=== PATIENT | female | born 1945 | race Caucasian/White ===

== ENCOUNTER 2019-12-28 15:09 | Outpatient (CLI) | payer MEDICARE, OTHER, SELFPAY ==
--- NOTE | ~2019-12-28 | MM_ITS ---
EXAMINATION: MM screening michael LT w shane HISTORY: Screening TECHNIQUE: Craniocaudal and mediolateral oblique 3-D tomosynthesis images were obtained and synthetic 2-D images were generated. CAD analysis was submitted and interpreted. COMPARISON: Multiple 01/30/2014 BREAST PARENCHYMAL COMPOSITION: There are scattered areas of fibroglandular density. FINDINGS: The right breast is surgically absent. There is no evidence of suspicious mass, calcificati on, or architectural distortion to suggest malignancy in the left breast. There has been no suspiciou s interval change. IMPRESSION: 1. No mammographic evidence of malignancy. 2. Recommend routine screening mammography in one year. BI-RADS Category 1: Negative Reviewed, dictated and finalized at location A.
== END 2019-12-28 15:10 | disposition home or self-care (01) ==
LOC: ANHIMG 15:15
PROVIDERS: PCP Obstetrics & Gynecology; Visit Provider Obstetrics & Gynecology
DX: Z12.31 Encounter for screening mammogram for malignant neoplasm of breast (principal)
CPT/HCPCS: 77063; 77067

== ENCOUNTER 2020-12-27 14:42 | Outpatient (CLI) | payer MEDICARE, SELFPAY ==
--- NOTE | ~2020-12-27 | MM_ITS ---
EXAMINATION: MM screening michael LT w shane HISTORY: Screening. Status post right mastectomy for breast cancer in 2017. TECHNIQUE: Craniocaudal and mediolateral oblique 3-D tomosynthesis images were obtained and synthetic 2-D images were generated. CAD analysis was submitted and interpreted. COMPARISON: Comparison to multiple prior studies sequentially, with oldest reviewed study dated 12/2013. BREAST PARENCHYMAL COMPOSITION: There are scattered areas of fibroglandular density. FINDINGS: There is no evidence of suspicious mass, calcification, or architectural distortion to sugg est malignancy in the left breast. There has been no suspicious interval change. IMPRESSION: 1. No mammographic evidence of malignancy. 2. Recommend routine screening mammography in one year. BI-RADS Category 1: Negative Reviewed, dictated and finalized at location A.
== END 2020-12-27 14:43 | disposition home or self-care (01) ==
PROVIDERS: PCP Obstetrics & Gynecology; Visit Provider Obstetrics & Gynecology
DX: Z12.31 Encounter for screening mammogram for malignant neoplasm of breast (principal)
CPT/HCPCS: 77063; 77067

== ENCOUNTER 2023-06-16 13:58 | Outpatient (NON) | payer MEDICARE, SELFPAY ==
[2023-06-16 14:28] LABS: SARS-CoV-2 RNA PCR Negative (Negative)
[2023-06-16 14:34] LABS: Influenza A QL RT-PCR Negative (Negative); Influenza B QL RT-PCR Negative (Negative)
[2023-06-16 14:41] LABS: Strep Group A RT-PCR Detected (Negative)
== END 2023-06-16 13:59 | disposition home or self-care (01) ==
PROVIDERS: Visit Provider Family Medicine
DX: J06.9 Acute upper respiratory infection, unspecified (principal); Z20.822 Contact with and (suspected) exposure to COVID-19
CPT/HCPCS: 87636; 87651

== ENCOUNTER 2024-05-23 14:38 | Outpatient (CLI) | payer MEDICARE, SELFPAY ==
[2024-05-23 15:02] LABS: Hematocrit 45.4 % (35.0-42.0); Mean Corpuscular Hemoglobin 30.5 pg (27.0-31.0); Mean Corpuscular Volume 92.3 fL (78.0-102.0); Mean Platelet Volume 8.8 fl (9.2-11.8); Platelet Count Result 203 K/mm3 (150-420); Red Blood Count 4.92 M/mm3 (4.20-5.40); Red Cell Distribution Width 12.7 % (11.6-14.4); White Blood Count 6.6 K/mm3 (4.8-10.8)
[2024-05-23 15:28] LABS: Anion Gap 10 mmol/L (4-12); Blood Urea Nitrogen 15 mg/dL (7-18); Calcium 9.3 mg/dL (8.5-10.1); Carbon Dioxide 32 mmol/L (21-32); Chloride 100 mmol/L (98-108); Estimated Glomerular Filt Rate 59; Glucose 121 mg/dL (70-99); Osmolality Calculated 295 mOsm/kg (285-295); Potassium 3.3 mmol/L (3.5-5.1); Sodium 142 mmol/L (136-145)
== END 2024-05-23 14:39 | disposition home or self-care (01) ==
PROVIDERS: PCP Family Medicine; Visit Provider Family Medicine
DX: I69.351 Hemiplegia and hemiparesis following cerebral infarction affecting right dominant side (principal)
CPT/HCPCS: 36415; 80048; 85027

== ENCOUNTER 2024-07-14 16:53 | Outpatient (CLI) | payer MEDICARE, SELFPAY ==
--- OUTSIDE RECORDS SUMMARY | 2024-07-14 16:56 | XMS_ITS | Clinical Summary ---
Author Organization [facility] Address [address] [place] [address] Care Team Providers Care Underground Mine Machinery Mechanic Name Role Phone Dariel Benavides MD Primary Care Provider [phone] Lo Jefferson MD Unavailable Oscar London MD Unavailable Allergies No known active allergies Medications metoprolol succinate 25 MG 24 hr tablet Take 1 tablet (25 mg total) by mouth daily. 7 Active omeprazole 40 MG capsule Take 40 mg by mouth daily. 7 Active trazodone 50 MG tablet Take 1 tablet (50 mg total) by mouth nightly at bedtime. Active vitamin D3, cholecalciferol , 1000 UNIT Tab tablet Take 1,000 Units by mouth daily. Active DME COMPRESSION STOCKINGS 20-30 MMHg Compression Stocking Thigh High open or closed toe Dx I83.893 2 Container 6 9 Active rosuvastatin 5 MG tablet Take 1 tablet (5 mg total) by mouth nightly at bedtime. Active clopidogrel 75 MG tablet Take 1 tablet (75 mg total) by mouth daily. Active betamethasone valerate ointment 0.1 % ointment Apply topically 2 (two) times daily. apply to affected area 0 Active fluticasone propionate 50 MCG/ACT nasal spray 2 sprays by Each Nostril route daily. 2 Active ibuprofen 800 MG tablet Take 800 mg by mouth every 8 (eight) hours as needed. 2 Active venlafaxine XR 150 MG 24 hr capsule Take 1 capsule (150 mg total) by mouth daily. 2 Active ondansetron (ZOFRAN) 4 MG tablet Take 1 tablet (4 mg total) by mouth every 8 (eight) hours as needed for Nausea. 20 tablet 2 Active ARIPiprazole (ABILIFY) 2 MG tablet Take 1 tablet (2 mg total) by mouth daily. Active pantoprazole EC (PROTONIX) 40 MG tablet Take 1 tablet (40 mg total) by mouth daily. Active acetaminophen (TYLENOL) 500 MG tablet Take 1 tablet (500 mg total) by mouth every 6 (six) hours as needed for Pain. 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 History of right breast cancer 08/12/2018 Shoulder impingement, right 07/08/2018 Right shoulder pain 07/05/2018 Age related osteoporosis 04/10/2017 Night sweat 11/14/2016 Cancer of right breast, stage 1 ([facility] ) 11/13/2016 Cancer Staging:Pathologic stage from 07/14/2016:Stage IA(pT1b(m), pN0, cM0, GX, ER+, MA+, HER2-, Oncotype DX score: 2) - Signed by Lo Jefferson MD on 04/22/2018 Diverticulosis of colon 05/14/2013 Constipation 01/11/2013 Melanocytic nevus 01/11/2013 Symptomatic varicose veins of both lower extremi ties Resolved Problems Problem Noted Date Diagnosed Date Resolved Date Altered mental status 08/20/20182018 Immunizations Name Administration Dates Next Due Influenza Adult (Generic) 03/17/2018,05/05/2017 Pneumococcal (Prevnar 13) 09/21/2017 Family History Medical History Relation Comments Lung Cancer Father Lung Cancer Mother Heart Attack Sister Relation Status Comments Father Maternal Grandfather Maternal Grandmother Mother Paternal Grandfather Paternal Grandmother Sister Social History Tobacco Use Types Packs/Day Years Used Date Smoking Tobacco: Former Smokeless Tobacco: Never Tobacco Cessation:Counseling Given: Not Answered Alcohol Use Standard Drinks/Week Comments No 0 (1 standard drink = 0.6 oz pur e alcohol) Humiliation, Afraid, Rape, and Kick questionnair e Answer Date Recorded Fear of Current or Ex-Partner No Emotionally Abused No 06/20/2019 Physically Abused No 06/20/2019 Sexually Abused No 06/20/2019 Social Connection and Isolation Panel [NHANES] A nswer Date Recorded Frequency of Communication with Friends and Fami ly Patient declined 06/20/2019 Frequency of Social Gatherings with Friends and Family Patient declined 06/20/2019 Attends [facility] Patient declined 05/26 Active Member of Clubs or Organizations Patient declined 06/20/2019 Attends Club or Organization Meetings Patient de clined 06/20/2019 Marital Status Patient declined 06/20/2019 AUDIT-C Answer Date Recorded Frequency of Alcohol Consumption Never 04/23/2018 Average Number of Drinks Not on file 018 Frequency of Binge Drinking Not on file 03/27 Overall Financial Resource Strain (CARDIA) Answe r Date Recorded Difficulty of Paying Living Expenses Not very li rd 06/20/2019 PHQ-2 Answer Date Recorded PHQ-2 Score - If the patient scores above 3, please move on to questions 3-9 0 11/09/2019 [facility] Occup[facility] - Occupational Stress Questionnaire Answer Date Recorded Feeling of Stress Patient declined 06/20/2019 Exercise Vital Sign Answer Date Recorde d Days of Exercise per Week Patient declined 06/20 Minutes of Exercise per Session Patient declined 06/20/2019 Hunger Vital Sign Answer Date Recorded Worried About Running Out of Food in the Last Ye ar Patient declined 06/20/2019 Ran Out of Food in the Last Year Patient decline d 06/20/2019 PRAPARE - Transportation Answer Date Re corded Lack of Transportation (Medical) Patient decline d 06/20/2019 Lack of Transportation (Non-Medical) Patient dec lined 06/20/2019 Comments No Sex and Gender Information Value Date Recorded Sex Assigned at Not on file Legal Sex Female 11:00 PM STAIR BUILDER Gender Identity Not on file Sexual Orientation Not on file Occupation Industry Job Start Date Job End Date retired Not on file Not on file Not on file Last Filed Vital Signs Vital Sign Reading Time Taken Comments Blood Pressure 166/75 08/09/2023 2:00 PM CDT Pulse 72 08/09/2023 1:59 PM CDT Temperature 35.8 C (96.4 F) 08/09/2023 12:35 PM CDT Respiratory Rate 16 08/09/2023 1:59 PM CDT Oxygen Saturation 98% 08/09/2023 2:00 PM CDT Inhaled Oxygen Concentration - - Weight 77 kg (169 lb 12.1 oz) 08/09/2023 12:35 P M CDT Height 165.1 cm (5' 5 ) 08/09/2023 12:35 PM CDT Body Mass Index 28.25 08/09/2023 12:35 PM CDT Plan of Treatment Health Maintenance Due Date Last Done Comments Hepatitis C 08[birth year]08/1963 DTaP, Tdap and Td Vaccines ( 1 - Tdap) 1964 Zoster Vaccines (1 of 2) 08/08/1995 Annual Medicare Wellness Visit 2010 Dexa Scan (General) 2010 Pneumococcal Vaccine: 65+ Years (2 of 2 - PPSV23 or PCV20) 09/21/2018 09/21/2017 RSV Immunization or 60+ Years (1 - 1-dose 75+ series) 2020 COVID-19 Vaccine ( - 2023-2 5 season) 2024 Influenza Adult (#1) 2024 03/17/2018, 05/05/2017 Colorectal Cancer Screening Colonoscopy (10 Years) Discontinued Meningococcal B Vaccine Aged Out No l onger eligible based on patient's age to complete this topic Meningococcal Vaccine Aged Out No desiree pratibha eligible based on patient's age to complete this topic RSV Immunizations Under 20 Months Aged Out No longer eligible based on patient's age to complete this topic Procedures Procedure Name Priority Date/Time Associated Diagnosis Comments COLONOSCOPY Routine STAIR BUILDER from Last 3 Months or Most Recently Relevant to Health Maintenance Results * Colonoscopy ( STAIR BUILDER) Narrative [facility] TO EPIC CONVERSION - STAIR BUILDER Documented hx of procedure Procedure Note , Generic Conversion, - 11/04/2018 Documented hx of procedure us Generic Conversion Md MD FREIRE PROCEDURE ORDERABLES Final Result [employer] TO EPIC CONVERSION from Last 3 Months or Most Recently Relevant to Health Maintenance Insurance MEDICARE [facility] [employer] Address: [address] [place] [id number] MEDICARE [facility] Advance Directives Documents on File Type Date Recorded Patient Integration Project Manager Expl anation Advance Directives and Livin g Will 12/09/2021 3:37 PM 06/21/2006 Advance Directives and Livin g Will 09/02/2018 9:53 AM POA Advance Directives and Livin g Will 08/24/2018 8:01 AM Living Will * Full Code (Latest Code Status on File) Date Activated Date Inactivated Comments 11/27/2021 9:03 AM 11/27/2021 1:39 PM * Full Code Date Activated Date Inactivated Comments 06/20/2019 2:39 PM 06/21/2019 5:58 PM * Full Code Date Activated Date Inactivated Comments 08/20/2018 8:12 PM 08/21/2018 2:26 PM Care Teams Underground Mine Machinery Mechanic Relationship Specialty Start Date End Date Dariel Benavides MD [address] [place] [address] PCP - General FAMILY PRACTICE 08/25/18 Lo Jefferson MD [address] [place] [address] Consulting Physician INTERNAL MEDICINE HEMATOLOGY & ONCOLOGY 10/27/18 Oscar London MD [address] [place] [address] Consulting Physician INTERNAL MEDICINE 10/27/18
--- OUTSIDE RECORDS SUMMARY | 2024-07-14 16:56 | XMS_ITS | Encounter Summary ---
Author Organization [facility] Address [address] [place] [address] Care Team Providers Care Floor Covering Layer Name Role Phone Dariel Benavides MD Primary Care Provider [phone] Lo Jefferson MD Unavailable Oscar London MD Unavailable Encounter Details Date Type Department Care Team (Late st Contact Info) Description 10/30/2018 Abstract [facility] CONVERSION [address] [place] [address] , Generic Conversion, Social History Tobacco Use Types Packs/Day Years Used Date Smoking Tobacco: Former Smokeless Tobacco: Never Alcohol Use Standard Drinks/Week Comments No 0 (1 standard drink = 0.6 oz pur e alcohol) AUDIT-C Answer Date Recorded Frequency of Alcohol Consumption Never 04/23/2018 Average Number of Drinks Not on file 018 Frequency of Binge Drinking Not on file 03/27 Comments Unknown Sex and Gender Information Value Date Recorded Sex Assigned at Not on file Legal Sex Female 11:00 PM PATIENT FINANCIAL ADVOCATE Gender Identity Not on file Sexual Orientation Not on file Occupation Industry Job Start Date Job End Date retired Not on file Not on file Not on file documented as of this encounter Functional Status * RETIRED Are you deaf or do you have serious difficulty hearing Answer Date of Assessment Author Status No 08/20/2018 7:57 PM CDT Activ e documented as of this encounter Plan of Treatment Not on file documented as of this encounter Visit Diagnoses Not on filedocumented in this encounter Additional Health Concerns Infection Onset Date Last Indicated Resolved Time COVID-19 Rule Out 05/11/2022 05/11/2022 05/11/2022 1:23 PM PATIENT FINANCIAL ADVOCATE documented as of this encounter Care Teams Floor Covering Layer Relationship Specialty Start Date End Date Dariel Benavides MD [address] [place] [address] PCP - General FAMILY PRACTICE 08/25/18 Lo Jefferson MD [address] [place] [address] Consulting Physician INTERNAL MEDICINE HEMATOLOGY & ONCOLOGY 10/27/18 Oscar London MD [address] [place] [address] Consulting Physician INTERNAL MEDICINE 10/27/18 documented as of this encounter
--- OUTSIDE RECORDS SUMMARY | 2024-07-14 16:56 | XMS_ITS | Encounter Summary ---
Author Organization [facility] Address [address] [place] [address] Care Team Providers Care Auto Air Conditioning Mechanic Name Role Phone Dariel Benavides MD Primary Care Provider [phone] Lo Jefferson MD Unavailable Oscar London MD Unavailable Encounter Details Date Type Department Care Team (Late st Contact Info) Description 10/28/2018 Abstract [facility] [address] [place] [address] Oscar London MD [address] [place] [address] Social History Tobacco Use Types Packs/Day Years [...] on file Legal Sex Female 11:00 PM FACILITIES PAINTER Gender Identity Not on file Sexual Orientation [...] Rule Out 05/11/2022 05/11/2022 05/11/2022 1:23 PM FACILITIES PAINTER documented as of this encounter Care Teams Auto Air Conditioning Mechanic Relationship Specialty Start Date End Date Dariel Benavides MD [address] [place] [address] PCP - General FAMILY PRACTICE 08/25/18 Lo Jefferson MD [address] [place] [address] Consulting Physician INTERNAL MEDICINE HEMATOLOGY & ONCOLOGY 10/27/18 Oscar London MD [address] [place] [address] Consulting Physician INTERNAL MEDICINE 10/27/18 documented as of this encounter
--- OUTSIDE RECORDS SUMMARY | 2024-07-14 16:56 | XMS_ITS | Clinical Summary ---
Author Organization [facility] Address [address] [place] [address] Phone Care Team Providers Care Broadcast Program Director Name Role Phone Dariel Benavides MD Primary Care Provider [phone] Varun Medina MD Unavailable [phone] Allergies No known active allergies Medications acetaminophen (TYLENOL) 500 MG Tablet Take 500 mg by mouth every 6 hours as needed for Mild or more severe pain. Active ARIPiprazole (Abilify) 2 MG Tablet Take 2 mg by mouth daily. Active clopidogrel (PLAVIX) 75 MG Tablet Take 75 mg by mouth daily. Active metoprolol Succinate (TOPROL-XL) 25 MG TABLET SR 24 HR Take 25 mg by mouth daily. Active pantoprazole (Protonix) 40 MG Tablet Delayed Response Take 40 mg by mouth daily. Active traZODone (DESYREL) 50 MG Tablet Take 50 mg by mouth nightly. Active venlafaxine (EFFEXOR-XR) 150 MG CAPSULE SR 24 HR Take 150 mg by mouth daily. Active aspirin 81 MG Chewable Tablet Take 1 Tablet by mouth daily. 04/29/2023 Active rosuvastatin (CRESTOR) 20 MG Tablet Take 1 Tablet by mouth daily. 90 Tablet 04/29/2023 Active Active Problems Problem Noted Date Diagnosed Date GERD (gastroesophageal reflux disease) HLD (hyperlipidemia) 04/25/2023 HTN (hypertension) 04/25/2023 Depression 04/25/2023 Acute focal neurological deficit 04/25/2023 Family History Medical History Relation Name Comments Lung Cancer Father Lung Cancer Mother Heart Attack Sister Relation Name Status Comments Father Mother Sister Social History Tobacco Use Types Packs/Day Years Used Date Smoking Tobacco: Former Cigarettes Smokeless Tobacco: Never Tobacco Cessation:Counseling Given: Not Answered Alcohol Use Standard Drinks/Week Comments Never 0 (1 standard drink = 0.6 oz pur e alcohol) Comments No Sex and Gender Information Value Date Recorded Sex Assigned at Not on file Legal Sex Female 2:08 PM BOLT LABELER Gender Identity Not on file Sexual Orientation Not on file Last Filed Vital Signs Vital Sign Reading Time Taken Comments Blood Pressure 112/68 06/11/2023 9:49 AM BOLT LABELER Pulse 100 06/11/2023 9:49 AM BOLT LABELER Temperature 36.1 C (97 F) 06/11/2023 9:49 AM BOLT LABELER Respiratory Rate 18 06/11/2023 9:49 AM BOLT LABELER Oxygen Saturation 96% 06/11/2023 9:49 AM BOLT LABELER Inhaled Oxygen Concentration - - Weight 81.6 kg (180 lb) 06/11/2023 9:49 AM BOLT LABELER Height 165.1 cm (5' 5 ) 06/11/2023 9:49 AM BOLT LABELER Body Mass Index 29.95 06/11/2023 9:49 AM BOLT LABELER Plan of Treatment Health Maintenance Due Date Last Done Comments DEXA Bone Density 1945 Hepatitis C Virus (HCV) Screening 1945 TdaP Immunization 1945 Zoster Immunization (1 of 2) 08/08/1995 Respiratory Syncytial Virus (RSV) Immunization (Adult) (1 - 1-dose 75+ series) 2020 Influenza Immunization (#1) 01/24/202409/2022, 02/26/2022, 03/09/2020, Additional history exists SARS-COV-2 Immunization ( season) 2024 04/29/2021, 08/03/2020, 07/13/2020 Pneumococcal Immunization (50+ years) Completed 03/09/2019, 09/21/2017 Hepatitis B Immunization Aged Out No longer eligible based on patient's age to complete this topic Meningococcal Immunization (ACWY) Aged Out No longer eligible based on patient's age to complete this topic Rotavirus Immunization Aged Out No lo nger eligible based on patient's age to complete this topic Insurance MEDICARE [facility] Advance Directives Documents on File Type Date Recorded Patient Junior Staff Accountant Expl anation Power of Proofer for Health Care 04/28/2023 5:57 AM POA-HC, 06/21/2006 Living Will 04/28/2023 5:57 AM LIVING MARTHA L, 06/21/2006 * Full Code (Latest Code Status on File) Date Activated Date Inactivated Comments 04/25/2023 8:59 PM 04/28/2023 6:23 PM CPR-Full Eloy atment: FULL ARREST: Attempt Resuscitation/CPR wit intubation and mechanical ventilation. PRE-ARREST: Use entire range of life support measures to stabilize the patient. Care Teams Broadcast Program Director Relationship Specialty Start Date End Date Dariel Benavides MD [address] [place] [address] PCP - General Family Medicine 04/25/23 Varun Medina MD [address] [place] [address] Consulting Physician Neurology 06/11/23
[2024-07-14 17:04] LABS: Appearance Urine Clear (Clear); Bilirubin Urine 1+ (Negative); Blood Urine Negative (Negative); Glucose Urine UA Negative (Negative); Ketones Urine 1+ (Negative); Leukocyte Esterase Ur 1+ LEU/UL (Negative); Nitrate Urine Positive (Negative); Protein Urine 1+ (Negative); Specific Grav Ur >= 1.030 (1.010-1.020); pH Urine 5.5 (5.0-8.0)
[2024-07-14 17:15] LABS: Add Urine Microscopic? YES; Bacteria Urine 4+ /hpf; Color Urine Dark Orange (Yellow); RBC Urine 0-2 /hpf (0-2); Squamous Epithelial Cell Urine Few /hpf (Few); WBC Urine 31-50 /hpf (0-3)
== END 2024-07-14 16:54 | disposition home or self-care (01) ==
LOC: CHSLAB 16:55
PROVIDERS: PCP Family Medicine; Visit Provider Family Medicine
DX: N39.0 Urinary tract infection, site not specified (principal)
CPT/HCPCS: 81001; 87086; 87186

== ENCOUNTER 2024-07-20 10:59 | Outpatient (CLI) | payer MEDICARE, SELFPAY ==
[2024-07-20 11:25] LABS: Hematocrit 48.2 % (35.0-42.0); Hemoglobin 15.7 g/dL (11.7-13.8); Mean Corpuscular HGB Conc 32.6 g/dL (32-36); Mean Corpuscular Hemoglobin 29.7 pg (27.0-31.0); Mean Corpuscular Volume 91.3 fL (78.0-102.0); Mean Platelet Volume 9.2 fl (9.2-11.8); Platelet Count Result 278 K/mm3 (150-420); Red Blood Count 5.28 M/mm3 (4.20-5.40); Red Cell Distribution Width 13.3 % (11.6-14.4); White Blood Count 9.1 K/mm3 (4.8-10.8)
[2024-07-20 11:46] LABS: Alanine Aminotransferase 18 U/L (14-59); Albumin Level 3.7 g/dL (3.4-5.0); Alkaline Phosphatase 94 U/L (46-116); Amylase 44 U/L (25-115); Anion Gap 14 mmol/L (4-12); Aspartate Amino Transferase 25 U/L (15-37); Bilirubin,Total 1.2 mg/dL (0.00-1.00); Blood Urea Nitrogen 15 mg/dL (7-18); Calcium 9.8 mg/dL (8.5-10.1); Carbon Dioxide 30 mmol/L (21-32); Chloride 97 mmol/L (98-108); Estimated Glomerular Filt Rate > 60; Glucose 95 mg/dL (70-99); Lipase 25 U/L (16-77); Osmolality Calculated 292 mOsm/kg (285-295); Potassium 3.4 mmol/L (3.5-5.1); Sodium 141 mmol/L (136-145)
--- OUTSIDE RECORDS SUMMARY | 2024-07-20 12:47 | XMS_ITS | Clinical Summary ---
Author Organization [facility] Address [address] [place] [address] Phone Care Team Providers Care Rating Officer Name Role Phone Dariel Benavides MD Primary Care Provider [phone] Varun Medina MD Unavailable [phone] Allergies No known active allergies Medications acetaminophen [...] on file Legal Sex Female 2:08 PM FANCY PACKER Gender Identity Not on file Sexual Orientation Not on file Last Filed Vital Signs Vital Sign Reading Time Taken Comments Blood Pressure 112/68 06/11/2023 9:49 AM FANCY PACKER Pulse 100 06/11/2023 9:49 AM FANCY PACKER Temperature 36.1 C (97 F) 06/11/2023 9:49 AM FANCY PACKER Respiratory Rate 18 06/11/2023 9:49 AM FANCY PACKER Oxygen Saturation 96% 06/11/2023 9:49 AM FANCY PACKER Inhaled Oxygen Concentration - - Weight 81.6 kg (180 lb) 06/11/2023 9:49 AM FANCY PACKER Height 165.1 cm (5' 5 ) 06/11/2023 9:49 AM FANCY PACKER Body Mass Index 29.95 06/11/2023 9:49 AM FANCY PACKER Plan of Treatment Health Maintenance Due Date [...] age to complete this topic Insurance MEDICARE [facility] Advance Directives Documents on File Type Date Recorded Patient Custom Applicator Expl anation Power of Fundraising Specialist for Health Care 04/28/2023 5:57 AM POA-HC, 06/21/2006 Living Will 04/28/2023 5:57 AM LIVING MARTHA L, 06/21/2006 * Full Code (Latest Code Status on File) Date Activated Date Inactivated Comments 04/25/2023 8:59 PM 04/28/2023 6:23 PM CPR-Full Eloy atment: FULL ARREST: Attempt Resuscitation/CPR wit intubation and mechanical ventilation. PRE-ARREST: Use entire range of life support measures to stabilize the patient. Care Teams Rating Officer Relationship Specialty Start Date End Date Dariel Benavides MD [address] [place] [address] PCP - General Family Medicine 04/25/23 Varun Medina MD [address] [place] [address] Consulting Physician Neurology 06/11/23
--- OUTSIDE RECORDS SUMMARY | 2024-07-20 12:47 | XMS_ITS | Encounter Summary ---
Author Organization [facility] Address [address] [place] [address] Care Team Providers Care Puppet Engineer Name Role Phone Dariel Benavides MD Primary Care Provider [phone] Lo Jefferson MD Unavailable Oscar London MD Unavailable Encounter Details Date Type Department Care Team (Late st Contact Info) Description 10/28/2018 Abstract [facility] [address] [place] [address] Oscar London MD [address] [place] [address] Social History Tobacco Use Types [...] on file Legal Sex Female 11:00 PM RESPIRATORY TECH Gender Identity Not on file Sexual Orientation [...] Rule Out 05/11/2022 05/11/2022 05/11/2022 1:23 PM RESPIRATORY TECH documented as of this encounter Care Teams Puppet Engineer Relationship Specialty Start Date End Date Dariel Benavides MD [address] [place] [address] PCP - General FAMILY PRACTICE 08/25/18 Lo Jefferson MD [address] [place] [address] Consulting Physician INTERNAL MEDICINE HEMATOLOGY & ONCOLOGY 10/27/18 Oscar London MD [address] [place] [address] Consulting Physician INTERNAL MEDICINE 10/27/18 documented as of this encounter
--- OUTSIDE RECORDS SUMMARY | 2024-07-20 12:47 | XMS_ITS | Encounter Summary ---
Author Organization [facility] Address [address] [place] [address] Care Team Providers Care Haul Driver Name Role Phone Dariel Benavides MD Primary Care Provider [phone] Lo Jefferson MD Unavailable Oscar London MD Unavailable Encounter Details Date Type Department Care Team (Late st Contact Info) Description 10/30/2018 Abstract [facility] CONVERSION [address] [place] [address] , Generic Conversion, Social History Tobacco Use [...] on file Legal Sex Female 11:00 PM POWER HAMMER OPERATOR Gender Identity Not on file Sexual Orientation [...] Rule Out 05/11/2022 05/11/2022 05/11/2022 1:23 PM POWER HAMMER OPERATOR documented as of this encounter Care Teams Haul Driver Relationship Specialty Start Date End Date Dariel Benavides MD [address] [place] [address] PCP - General FAMILY PRACTICE 08/25/18 Lo Jefferson MD [address] [place] [address] Consulting Physician INTERNAL MEDICINE HEMATOLOGY & ONCOLOGY 10/27/18 Oscar London MD [address] [place] [address] Consulting Physician INTERNAL MEDICINE 10/27/18 documented as of this encounter
--- OUTSIDE RECORDS SUMMARY | 2024-07-20 12:47 | XMS_ITS | Clinical Summary ---
Author Organization [facility] Address [address] [place] [address] Care Team Providers Care Hull Sorter Name Role Phone Dariel Benavides MD Primary Care Provider [phone] oL Jefferson MD Unavailable Oscar London MD Unavailable [...] 11/14/2016 Cancer of right breast, stage 1 ([facility] ) 11/13/2016 Cancer Staging:Pathologic stage from 07/14/2016:Stage IA(pT1b(m), pN0, cM0, GX, ER+, MN+, HER2-, Oncotype DX score: 2) - Signed [...] Friends and Family Patient declined 06/20/2019 Attends [employer] Patient declined 05/26 Active Member of [...] move on to questions 3-9 0 11/09/2019 [facility] of Occupat ional Health - Occupational Stress [...] on file Legal Sex Female 11:00 PM CUSTOMER RETENTION REPRESENTATIVE Gender Identity Not on file Sexual Orientation [...] Priority Date/Time Associated Diagnosis Comments COLONOSCOPY Routine CUSTOMER RETENTION REPRESENTATIVE from Last 3 Months or Most Recently Relevant to Health Maintenance Results * Colonoscopy ( CUSTOMER RETENTION REPRESENTATIVE) Narrative [facility] TO EPIC CONVERSION - CUSTOMER RETENTION REPRESENTATIVE Documented hx of procedure Procedure Note , Generic Conversion, - 11/04/2018 Documented hx of procedure us Generic Conversion Md MD FREIRE PROCEDURE ORDERABLES Final Result [facility] TO EPIC CONVERSION from Last 3 Months or Most Recently Relevant to Health Maintenance Insurance MEDICARE [facility] MEDICARE [facility] Advance Directives Documents on File Type Date Recorded Patient Resin Painter Expl anation Advance Directives and Livin g [...] 8:12 PM 08/21/2018 2:26 PM Care Teams Hull Sorter Relationship Specialty Start Date End Date Dariel Benavides MD [address] [place] [address] PCP - General FAMILY PRACTICE 08/25/18 Lo Jefferson MD [address] [place] [address] Consulting Physician INTERNAL MEDICINE HEMATOLOGY & ONCOLOGY 10/27/18 Oscar London MD [address] [place] [address] Consulting Physician INTERNAL MEDICINE 10/27/18
[2024-07-21 09:09] LABS: Bilirubin Direct 0.3 mg/dL (0-0.2); Bilirubin Indirect 0.9 mg/dL (0-1.0)
== END 2024-07-20 11:00 | disposition home or self-care (01) ==
LOC: CHSLAB 11:01
PROVIDERS: PCP Family Medicine; Visit Provider Family Medicine
DX: R53.1 Weakness (principal); R11.0 Nausea
CPT/HCPCS: 36415; 80053; 82150; 82248; 83690; 85027